=== PATIENT | male | born 1990 ===

== ENCOUNTER 2017-12-23 03:20 | Emergency (ER) | payer SELFPAY ==
[2017-12-23 03:35] VITALS: O2SAT 98
--- NOTE | 2017-12-23 03:56 | C.PDOC ---
History Of Present Illness 27 y/o male presents to the ED complaining of left sternal border chest pain, initially onset earlier today. Pain had resolved but patient woke up to another episode of the same pain early this morning, which caused him to take shallow breaths and felt sob, prompting him to come to the ED. Of note, patient has smoked 1 pack per day for 7 years. No leg swelling or pain. No prolonged immobilization. Time Seen by Provider: 12/23/17 03:44 Chief Complaint (Nursing): Shortness Of Breath History Per: Patient History/Exam Limitations: no limitations Onset/Duration Of Symptoms: Intermittent Episodes Current Symptoms Are (Timing): Still Present Past Medical History Reviewed: Historical Data, Nursing Documentation, Vital Signs Vital Signs: Last Vital Signs Temp 98 F 12/23/17 06:27 Pulse 105 H 12/23/17 06:27 Resp 20 12/23/17 06:27 BP 126/82 12/23/17 06:27 Pulse Ox 98 12/23/17 06:27 - Medical History PMH: No Chronic Diseases Surgical History: No Surg Hx Family History: States: No Known Family Hx - Social History Hx Tobacco Use: Yes Hx Alcohol Use: No Hx Substance Use: No Review Of Systems Constitutional: Negative for: Fever Cardiovascular: Positive for: Chest Pain Respiratory: Positive for: Shortness of Breath Gastrointestinal: Negative for: Nausea, Vomiting Musculoskeletal: Negative for: Leg Pain (or swelling) Physical Exam - Physical Exam Appears: No Acute Distress Skin: No Rash Head: Atraumatic, Normacephalic Eye(s): bilateral: PERRL, EOMI Oral Mucosa: Moist Neck: Supple Chest: Tenderness (Reproducible left sternal border tenderness) Cardiovascular: Rhythm Regular, No Murmur Respiratory: No Rales, No Rhonchi, No Wheezing, Other (Lungs clear to auscultation) Gastrointestinal/Abdominal: Bowel Sounds (normoactive), Soft, No Tenderness, No Distention Extremity: Normal ROM, No Pedal Edema, No Calf Tenderness Pulses: Left Radial: Normal, Right Radial: Normal Neurological/Psych: Other (Alert, no gross deficits) ED Course And Treatment ECG: Viewed By Me ECG Rhythm: Sinus Rhythm ECG Interpretation: Normal Interpretation Of ECG: nsr, no st-t changes Rate From EC O2 Sat by Pulse Oximetry: 98 (RA) Pulse Ox Interpretation: Normal Medical Decision Making Medical Decision Making: Impression: 27 y/o male with reproducible chest pain Initial Plan: Ordered chest x-ray and EKG. 30 mg IM Toradol given. 6050am pt with hex cxr, normal ekg. +reproducible left chest wall pain; resovled with toradol= sharon d/c tx for costhochondritis, f/u med clinic. Disposition Counseled Patient/Family Regarding: Studies Performed, Diagnosis, Need For Followup, Rx Given - Disposition Referrals: [facility] [Outside] Disposition: HOME/ ROUTINE Disposition Time: 06:12 Condition: IMPROVED Additional Instructions: Please avoid heavy lifting. Stop smoking. Follow up in medical clinic. Take ibuprofen for pain. Return for any worse symptoms. Prescriptions: Ibuprofen [Motrin] 600 mg PO TID #30 tab Instructions: Costochondritis (DC) Forms: General Discharge Instructions, [facility] (Dutch), Work Excuse - Clinical Impression Clinical Impression: Costochondritis, acute - PA / BUNDLER / Resident Statement MD/DO has reviewed & agrees with the documentation as recorded. - Scribe Statement The provider has reviewed the documentation as recorded by the Scribe (Tila Barton) All medical record entries made by the Scribe were at my direction and personally dictated by me. I have reviewed the chart and agree that the record accurately reflects my personal performance of the history, physical exam, medical decision making, and the department course for this patient. I have also personally directed, reviewed, and agree with the discharge instructions and disposition.
[2017-12-23 06:31] VITALS: BP 126/82; PULSE 105; RESP 20; TEMP 98
--- NOTE | 2017-12-23 11:40 | RAD ---
Chest x-ray two views History: Chest pain. Shortness of breath. Comparison: None available. Findings No focal infiltrate or effusion. Heart size within normal limits. Right hilar prominence. Small nodular density at the left lung base may represent confluence shadows with ribs and vessels. Impression: No focal infiltrate or effusion.
--- NOTE | 2017-12-24 11:16 | CARD ---
APPROVED REPORT EKG Measurement Heart [id number] <Conclusion> Normal sinus rhythm Normal ECG
== END 2017-12-23 06:27 | disposition home or self-care (01) ==
LOC: C.ER 03:20
DX: M94.0 Chondrocostal junction syndrome [Tietze] (principal)
CPT/HCPCS: 71046; 93005; 96372; 99284; J1885

== ENCOUNTER 2018-08-04 17:42 | Emergency (ER) | payer MEDICAID ==
[2018-08-04 18:02] VITALS: BP 127/83; PULSE 80; RESP 20; TEMP 98.5; O2SAT 97
--- NOTE | 2018-08-04 19:47 | C.PDOC ---
History Of Present Illness patient left without being seen. Time Seen by Provider: 08/04/18 18:46 Chief Complaint (Nursing): Upper Extremity Problem/Injury Past Medical History Vital Signs: Last Vital Signs Temp 98.5 F 08/04/18 17:57 Pulse 80 08/04/18 17:57 Resp 20 08/04/18 17:57 BP 127/83 08/04/18 17:57 Pulse Ox 97 08/04/18 17:57 Family History: States: No Known Family Hx - Social History Hx Tobacco Use: Yes Hx Alcohol Use: No Hx Substance Use: No - Immunization History Hx Tetanus Toxoid Vaccination: No Hx Influenza Vaccination: No Hx Pneumococcal Vaccination: No ED Course And Treatment O2 Sat by Pulse Oximetry: 97 Disposition - Disposition Disposition: LEFT W/O BEING SEEN - ER ONLY Disposition Time: 18:48 Condition: UNKNOWN Forms: [facility] (Bulgarian) - Clinical Impression Clinical Impression: Pain in joint, shoulder region
== END 2018-08-04 18:48 | disposition left against medical advice (07) ==
LOC: C.ER 17:42
DX: Z02.89 Encounter for other administrative examinations (principal); M25.519 Pain in unspecified shoulder

== ENCOUNTER 2019-01-07 15:27 | Emergency (ER) | payer MEDICAID, OTHER ==
[2019-01-07 15:36] VITALS: TEMP 98.4
--- NOTE | 2019-01-07 16:39 | C.PDOC ---
History Of Present Illness 28 y/o M c PMHx HLD p/w chest pain x 1 week. Pain is sharp, focal, just L of midline, constant, worse with movement. Reports baseline shortness of breath from being out of shape. Denies fever, chills, nausea, vomiting, diaphoresis. Time Seen by Provider: 01/07/19 15:54 Chief Complaint (Nursing): Chest Pain Past Medical History Vital Signs: Last Vital Signs Temp 98.4 F 01/07/19 15:32 Pulse 103 H 01/07/19 15:51 Resp 14 01/07/19 15:51 BP 113/67 01/07/19 15:51 Pulse Ox 95 01/07/19 15:51 - Medical History PMH: Hyperlipidemia (1300 triglycerides 12/22/2018) Family History: States: No Known Family Hx - Social History Hx Tobacco Use: Yes Hx Alcohol Use: No Hx Substance Use: No - Immunization History Hx Tetanus Toxoid Vaccination: No Hx Influenza Vaccination: No Hx Pneumococcal Vaccination: No Review Of Systems Except As Marked, All Systems Reviewed And Found Negative. Constitutional: Negative for: Fever Gastrointestinal: Negative for: Vomiting Physical Exam - Physical Exam Additional Physical Exam Comments: Constitutional: No acute distress. Head: Normocephalic. Atraumatic. Eyes: PERRL. ENT: Moist mucous membranes. Neck: Supple. Cardiovascular: Tachycardic. Radial pulse 2+ bilaterally. Chest: Reproducible chest tenderness. Respiratory: Clear to auscultation bilaterally. GI: Soft. Nontender. Nondistended. Back: No CVA tenderness. Musculoskeletal: No tenderness or swelling of extremities. Skin: No rash. Neurologic: Alert, no focal deficit. ED Course And Treatment - Laboratory Results Result Diagrams: 01/07/19 16:38 01/07/19 16:38 O2 Sat by Pulse Oximetry: 95 Medical Decision Making Medical Decision Making: Chest XR Impression: No focal consolidation identified. EKG 95 bpm, no ST/T wave changes. Discharged home, f/u PMD, return to ED for worsening pain, dyspnea, or any other problem. Disposition - Disposition Disposition: HOME/ ROUTINE Disposition Time: 18:40 Condition: GOOD Prescriptions: Ibuprofen [Motrin] 600 mg PO Q6 #25 tab Instructions: Costochondritis Forms: [employer] (Tamazight) - Clinical Impression Clinical Impression: Costochondritis, acute
[2019-01-07 16:42] LABS: BASO % 0.3 % (0.0-2.0); EOS # 0.2 K/uL (0.0-0.7); EOS % 2.2 % (0.0-4.0); HEMOGLOBIN 14.9 g/dL (12.0-18.0); LYMPH # 2.8 K/uL (1.0-4.3); LYMPH % 24.6 % (20.0-40.0); MEAN CELL VOLUME 88.4 fL (80.0-94.0); MEAN CORPUSCULAR HEMOGLOBIN 30.7 pg (27.0-31.0); MEAN CORPUSCULAR HGB CONC 34.8 g/dL (33.0-37.0); MEAN PLATELET VOLUME 8.6 fL (7.2-11.7); MONO # 0.9 K/uL (0.0-0.8); MONO % 7.7 % (0.0-10.0); NEUT # 7.4 K/uL (1.8-7.0); NEUT % 65.2 % (50.0-75.0); RBC 4.84 Mil/uL (4.40-5.90); RED CELL DISTRIBUTION WIDTH 13.1 % (11.5-14.5); WHITE BLOOD COUNT 11.4 K/uL (4.8-10.8)
[2019-01-07 17:01] LABS: ALB/GLOB RATIO 1.4 (1.0-2.1); ALBUMIN 5.4 g/dL (3.5-5.0); ALT/SGPT 116 U/L (21-72); AST/SGOT 64 U/L (17-59); BLOOD UREA NITROGEN 17 mg/dL (9-20); CALCIUM 9.8 mg/dl (8.6-10.4); GFR NON-AFRICAN AMERICAN > 60
--- NOTE | 2019-01-07 17:44 | RAD ---
HISTORY: chest pain COMPARISON: Chest x-ray performed 12/23/17 TECHNIQUE: Chest PA and lateral, 2 views FINDINGS: LUNGS: No focal consolidation. Please note that chest x-ray has limited sensitivity for the detection of pulmonary masses. PLEURA: No significant pleural effusion identified. No definite pneumothorax . CARDIOVASCULAR: The cardiomediastinal silhouette appears within normal limits of size. No atherosclerotic calcification present. OSSEOUS STRUCTURES: No acute osseous abnormality identified. VISUALIZED UPPER ABDOMEN: Elevation of the right hemidiaphragm. OTHER FINDINGS: None. IMPRESSION: No focal consolidation identified.
[2019-01-07 18:59] VITALS: BP 119/81; PULSE 92; RESP 20; O2SAT 98
--- NOTE | 2019-01-08 23:57 | CARD ---
APPROVED REPORT Date of service: 01/07/2019 EKG Measurement Heart [id number] <Conclusion> Normal sinus rhythm Normal ECG
== END 2019-01-07 18:59 | disposition home or self-care (01) ==
LOC: C.ER 15:27
DX: M94.0 Chondrocostal junction syndrome [Tietze] (principal); E78.5 Hyperlipidemia, unspecified; Z72.0 Tobacco use
CPT/HCPCS: 71046; 80053; 82550; 84484; 85025; 85378; 93005; 96374; 99284; J1885